=== PATIENT | male | born 1990 | race Asian ===

== ENCOUNTER 2023-12-04 09:58 | Emergency (ER) | payer OTHER ==
[~2023-12-04] VITALS: Ht 177.8 cm; Wt 84.0 kg
[2023-12-04 10:05] VITALS: TEMP 98.5
[2023-12-04] MEDS: ACETAMINOPHEN 325 MG TABLET PO ONE (11:03)
[2023-12-04] MEDS: LIDOCAINE 5% TRANSDERMAL PATCH TD ONE (11:03)
[2023-12-04] MEDS: METHOCARBAMOL 500 MG TABLET PO ONE (11:09)
[2023-12-04 13:00] VITALS: BP 115/73; PULSE 74; RESP 15; O2SAT 99
[2023-12-04] MEDS ORDERED: METH-812 PO (13:12)
== END 2023-12-04 13:20 | disposition home or self-care (01) ==
LOC: EMS 09:58
DX: M54.50 Low back pain, unspecified (principal); M54.2 Cervicalgia; R11.0 Nausea; Z91.013 Allergy to seafood; V89.2XXA Person injured in unspecified motor-vehicle accident, traffic, initial encounter; Y93.89 Activity, other specified; Y92.89 Other specified places as the place of occurrence of the external cause; Y99.8 Other external cause status
CPT/HCPCS: 72100; 72125; 99284; Z7502; Z7610